=== PATIENT | female | born 1995 | race Two or more races ===

== ENCOUNTER → 2019-05-21 | Outpatient (CLI) | payer OTHER ==
[2019-05-21 20:14] LABS: BASO # 0.1 10^3/uL (0.0-0.2); BASO % 0.4 % (0.0-1.0); EOS # 0.1 10^3/uL (0.0-0.5); EOS % 1.1 % (0.0-3.0); HEMOGLOBIN 12.7 g/dl (12.0-15.5); LYMPH # 2.4 10^3/uL (1.5-5.0); MEAN CORPUSCULAR HEMOGLOBIN 31.3 pg (27.0-33.0); MEAN CORPUSCULAR HGB CONC 34.3 g/dl (32.0-36.5); MEAN CORPUSCULAR VOLUME 91.1 fl (80.0-96.0); MONO # 0.7 10^3/uL (0.0-0.8); MONO % 5.7 % (0.0-5.0); NEUTROPHILS # 8.2 10^3/uL (1.5-8.5); NEUTROPHILS % 71.5 % (36.0-66.0); PLATELET COUNT, AUTOMATED 291 10^3/uL (150-450); RED BLOOD COUNT 4.06 10^6/uL (4.00-5.40); WHITE BLOOD COUNT 11.4 10^3/uL (4.0-10.0)
[2019-05-21 20:27] LABS: CHLAMYDIA DNA AMPLIFICATION NEGATIVE (NEGATIVE); GC DNA AMPLIFICATION NEGATIVE (NEGATIVE)
[2019-05-23 10:08] LABS: HEPATITIS C VIRUS ABY INDEX 0.1 INDEX (<0.8); HIV 1&2 SCREEN CENTAUR NEGATIVE (NEGATIVE); RUBELLA IgG QUALITATIVE IMMUNE (IMMUNE)
== END ==
LOC: M SMT 14:37
PROVIDERS: ATTEND Advanced Practice Midwife
DX: Z36.89 Encounter for other specified antenatal screening (principal)

== ENCOUNTER → 2019-07-16 | Outpatient (CLI) | payer OTHER | LOC: M LAB 15:13 | PROVIDERS: ATTEND Advanced Practice Midwife | DX: Z34.82 Encounter for supervision of other normal pregnancy, second trimester (principal) ==

== ENCOUNTER → 2019-08-08 | Outpatient (CLI) | payer OTHER ==
--- NOTE | 2019-08-08 16:06 | REP ---
Clinical: Anatomical evaluation. Comparison: None . Findings: Examination demonstrates a single live intrauterine in transverse (head to maternal right) presentation. motion is identified by technologist. Placenta is noted posterior and grade zero without evidence for placenta previa or abruption. Amniotic fluid volume is normal. Cervix measures 5.6 cm in length and appears closed. No evidence for nuchal cord. Gestational age by LMP 19 weeks 4 days with GOPI 12/29/2019 . Gestational age by current measurements 21 weeks 2 days with GOPI 12/17/2019 . FHR equals 147 beats per minute. BPD 4.9 cm 20 weeks 6 days HC 18.7 cm 21 weeks 0 days AC 16.7 cm 21 weeks 5 days FL 3.6 cm 21 weeks 3 days HL 3.3 cm 21 weeks 0 days HC/AC ratio 1.12 Estimated weight 429 grams ( 56 percentile based on age by current measurements ). Anatomical assessment demonstrates normal structures including cranium, choroid plexus, cerebellum/posterior fossa, facial features, lungs, four-chamber heart/ventricular outflow tracts, diaphragm, stomach, cord insertion/three-vessel cord, kidneys/bladder, spine, and extremities. Limited evaluation of the cavum due to positioning. Echogenic focus within the left cardiac ventricle consistent with prominent chordae tendineae. Impression: 1. Single live intrauterine in transverse lie demonstrating appropriate estimated weight to current age by measurements. 2. Anatomical limitations as noted above. Electronically Signed by Devon Esteban MD 08/08/2019 03:58 P
== END ==
LOC: M RAD 14:45
PROVIDERS: ATTEND Advanced Practice Midwife
DX: Z34.82 Encounter for supervision of other normal pregnancy, second trimester (principal); Z3A.19 19 weeks gestation of pregnancy

== ENCOUNTER → 2019-08-25 | Outpatient (CLI) | payer OTHER ==
--- NOTE | 2019-08-25 14:17 | REP ---
Clinical: Anatomical evaluation. Comparison: 08/08/2019 . Findings: Examination demonstrates a single live intrauterine in cephalic presentation. motion is identified by technologist. Placenta is noted posterior and grade zero without evidence for placenta previa or abruption. Amniotic fluid volume is normal. Cervix measures 5.7 cm in length and appears closed. No evidence for nuchal cord. Gestational age by LMP 22 weeks 0 days with GOPI 12/29/2019 . Gestational age by current measurements 23 weeks 4 days with GOPI 12/18/2019 . FHR equals 160 beats per minute. Estimated weight 582 grams ( 34th percentile based on age by first ultrasound and current measurements ). Anatomical assessment demonstrates normal structures including cranium, choroid plexus, cavum, cerebellum/posterior fossa, lungs, four-chamber heart/ventricular outflow tracts, diaphragm, stomach, kidneys/bladder, spine, and extremities. Impression: 1. Single live intrauterine demonstrating appropriate interval growth. 2. In conjunction with prior examination anatomical assessment is complete and normal. Electronically Signed by Devon Esteban MD 08/25/2019 02:08 P
== END ==
LOC: M RAD 13:04
PROVIDERS: ATTEND Advanced Practice Midwife
DX: Z36.2 Encounter for other antenatal screening follow-up (principal); Z3A.23 23 weeks gestation of pregnancy

== ENCOUNTER → 2019-09-26 | Outpatient (CLI) | payer OTHER ==
[2019-09-26 13:46] LABS: HEMOGLOBIN 11.9 g/dl (12.0-15.5); MEAN CORPUSCULAR HEMOGLOBIN 31.6 pg (27.0-33.0); MEAN CORPUSCULAR VOLUME 93.1 fl (80.0-96.0); PLATELET COUNT, AUTOMATED 338 10^3/uL (150-450); RED BLOOD COUNT 3.76 10^6/uL (4.00-5.40); WHITE BLOOD COUNT 12.8 10^3/uL (4.0-10.0)
== END ==
LOC: M PLALAB 08:25
PROVIDERS: ATTEND Advanced Practice Midwife
DX: Z34.93 Encounter for supervision of normal pregnancy, unspecified, third trimester (principal)

== ENCOUNTER 2019-11-07 17:38 | Outpatient (CLI) | payer OTHER ==
[~2019-11-07] VITALS: Ht 167.6 cm; Wt 93.9 kg
[2019-11-07 17:56] VITALS: BP 126/78
[2019-11-07] MEDS ORDERED: PEPC1TAB5 PO (17:59)
--- NOTE | 2019-11-07 18:38 | IPNPDOC ---
Text Note Date of Service The patient was seen on 11/07/19. NOTE Triage Subjective: Patient is a 24-year-old at 32.4 wk gestation. Patient arrives to L&D complaining of right lower quadrant/pelvic pain that is constant for a couple of days. Denies pain with urination. Denies fevers/chills. Reports recent sexual activity and pushing heavy object a couple of days ago. Reports positive movement, denies vaginal bleeding or leakage of fluid. Denies regular or painful uterine contractions. She reports she has not had much water to drink today. Reports pain is minimally improved after rest and fluids. Objective: Alert and oriented x3. Abdomen soft, non-tender. FHR 140, moderate variability. Accelerations present, decelerations absent. Mild uterine contractions every 2-7 minutes, patient unaware. Sterile speculum exam showed cervix thick/long/closed, FFN collected. Assessment: SIUP @ 32.4 wk, right lower constant pelvic pain. FHR category 1. Plan: Oral fluids given and encouraged. FFN negative. Urinalysis results attached. Urine culture pending. Reviewed results with patient and spouse, encouraged increased oral fluids and food intake. Reviewed access to care, [facility], signs of labor and abruption. Keep appointment on 11/21/2019. VS,Fishbone, I+O VS, Fishbone, I+O Vital Signs Date Time Temp Pulse Resp B/P (MAP) Pulse Ox O2 Delivery O2 Flow Rate FiO2 11/07/19 17:56 98.4 96 16 126/78 (94) Item Value Date Time Urine Color YELLOW 11/07/191830 Urine Appearance HAZY 11/07/191830 Urine pH 6.0 UNITS 11/07/191830 Urine Specific Bock 1.015 11/07/191830 Urine Protein NEGATIVE mg/dL 11/07/191830 Urine Glucose (Auto)(UA) NEGATIVE mg/dL 11/07/191830 Urine Ketones (Auto) TRACE mg/dL H 11/07/191830 Urine Blood 2+ H 11/07/191830 Urine Nitrite NEGATIVE 11/07/191830 Urine Bilirubin NEGATIVE 11/07/191830 Urine Urobilinogen 0.2 mg/dL 11/07/191830 Urine Leukocyte Esterase (Auto) NEGATIVE 11/07/191830 Urine WBC (Auto) 2 /HPF 11/07/191830 Urine RBC (Auto) 5 /HPF H 11/07/191830 Urine Hyaline Casts (Auto) 0 /LPF 11/07/191830 Urine Bacteria (Auto) 1+ H 11/07/191830 Urine Squamous Epithelial Cells 2 /HPF 11/07/191830 Urine Mucus (Auto) SMALL 11/07/191830 Item Value Date Time Fibronectin NEGATIVE 11/07/191830 Susan Feliz CNM Nov 07, 2019 18:38
[2019-11-07 18:52] LABS: APPEARANCE, URINE HAZY (CLEAR); BACTERIA, URINE AUTO 1+ (NEGATIVE); BILIRUBIN, URINE AUTO NEGATIVE (NEGATIVE); BLOOD, URINE BLOOD 2+ (NEGATIVE); COLOR, URINE YELLOW (YELLOW); GLUCOSE, URINE (UA) AUTO NEGATIVE (NEGATIVE); KETONE, URINE AUTO TRACE mg/dL (NEGATIVE); LEUKOCYTE ESTERASE, URINE AUTO NEGATIVE (NEGATIVE); MUCUS, URINE SMALL (NEGATIVE); NITRITE, URINE AUTO NEGATIVE (NEGATIVE); PROTEIN, URINE AUTO NEGATIVE (NEGATIVE); RBC, URINE AUTO 5 /HPF (0-3); SPECIFIC GRAVITY URINE AUTO 1.015 (1.002-1.035); SQUAMOUS EPITHELIAL CELL UR AU 2 /HPF (0-6); UROBILINOGEN, URINE AUTO 0.2 mg/dL (0.0-2.0); WBC, URINE AUTO 2 /HPF (0-3)
== END 2019-11-07 19:40 | disposition home or self-care (01) ==
LOC: M LDO 17:38
PROVIDERS: ATTEND Advanced Practice Midwife
DX: O26.93 Pregnancy related conditions, unspecified, third trimester (principal); R10.2 Pelvic and perineal pain; Z3A.32 32 weeks gestation of pregnancy
CPT/HCPCS: 59025; 81001; 82731; 87086; G0378; G0463

== ENCOUNTER → 2019-12-05 | Outpatient (REF) | payer OTHER ==
[~2019-12-05] MED LIST: PEPC1TAB5 PO
== END ==
LOC: M SFHCWAGY 16:42
PROVIDERS: ATTEND Advanced Practice Midwife
DX: Z36.85 Encounter for antenatal screening for Streptococcus B (principal)

== ENCOUNTER 2019-12-17 14:45 | Inpatient (IN) | payer OTHER ==
[~2019-12-17] VITALS: Ht 167.6 cm; Wt 96.3 kg
[2019-12-17] VITALS (18 sets, daily range): BP systolic 106–158; BP diastolic 65–97
[2019-12-17] MEDS ORDERED: LR 1,000 ML IV SCH ×2 (15:22→18:06)
[2019-12-17] MEDS ORDERED: LACTATED RINGER'S 1000 ML IV STA (15:22)
[2019-12-17] MEDS ORDERED: FENTANYL 2MCG/ML ROPIVACAINE 0.2% IN 0.9% NACL 100ML IVBAG As Ordered ONE (15:41)
[2019-12-17 15:47] LABS: HEMATOCRIT 36.1 % (36.0-47.0); HEMOGLOBIN 12.2 g/dl (12.0-15.5); MEAN CORPUSCULAR HEMOGLOBIN 29.8 pg (27.0-33.0); MEAN CORPUSCULAR HGB CONC 33.8 g/dl (32.0-36.5); MEAN CORPUSCULAR VOLUME 88.3 fl (80.0-96.0); PLATELET COUNT, AUTOMATED 320 10^3/uL (150-450); RED BLOOD COUNT 4.09 10^6/uL (4.00-5.40); WHITE BLOOD COUNT 13.7 10^3/uL (4.0-10.0)
--- NOTE | 2019-12-17 15:49 | HPE ---
DATE: 12/17/2019 Cora is a 24-year-old 1, para 0, 38-2/7 weeks gestation with an EDC of 12/29/2019 based on first trimester ultrasound. She presents to labor and delivery today with a report of contractions that started yesterday afternoon and have progressively become closer together and more painful. She does report some scant bloody show, denies leakage of fluid, and the fetus has been active. [facility] in the first trimester. Her course has been uncomplicated. OBSTETRIC HISTORY: Primigravida. OBSTETRIC LABS: O+, antibody screen negative, RPR negative. Hep B surface antigen negative. Hep C antibody nonreactive. HIV negative, rubella immune. Gonorrhea and chlamydia negative. Gestational diabetic screening normal at 118 and her GBS is negative. PAST MEDICAL HISTORY: Childhood varicella. SURGERIES: None. FAMILY HISTORY: Heart disease, hypertension. SOCIAL HISTORY: The patient is . Her is present and supportive. She is Occitan-speaking. She denies smoking, alcohol and drug use. There is no history of sexually transmitted infections and she does deny history of abuse physical, sexual and emotional. ALLERGIES: No known drug allergies. CURRENT MEDICATIONS: vitamin. OBJECTIVE: Temperature 99.2, pulse 88, respirations 18, BP is 130/82. She does appear uncomfortable deep breathing constraining with her contractions. heart rate is 130 with moderate variability, positive accelerations, negative decelerations. Contractions are every 2-4 minutes, they do palpate strong. Her abdomen is gravid, cephalic presentation by Hakeem's maneuver. Estimated weight 7-1/2 pounds. Sterile vaginal exam 4-5 cm dilated, 90% effaced, -2 station, mid position, positive show with the exam. ASSESSMENT: Intrauterine at 38-2/7 weeks. heart rate category 1 active labor at term. PLAN: Admit the patient to labor and delivery. Routine labs. Out of bed ad shaheed. Clear liquid diet. The patient is requesting an epidural to cope with her labor. IV fluid bolus has been ordered. She has been verbally consented for emergency surgery and blood products if they are necessary. I do anticipate continued cervical change and a spontaneous vaginal delivery. May consider IV Pitocin to augment her labor or assisted rupture of membranes if necessary once epidural has been placed.
[2019-12-17] MEDS ORDERED: ONDANSETRON 4MG/2ML VIAL (J2405 PER 1MG) IV PRN (17:45)
[2019-12-17] MEDS ORDERED: EPIDURAL/PCA KEYS XX PRN (17:45)
[2019-12-17] MEDS ORDERED: diphenhydrAMINE 50MG/ML VIAL (J1200) IV PRN (17:45)
[2019-12-17] MEDS ORDERED: EPIDURAL COMMENT XX SCH (17:45)
[2019-12-17] MEDS ORDERED: ePHEDrine SULFATE 25 MG/5 ML(5MG/ML) SYRINGE IV PRN (17:45)
[2019-12-17] MEDS ORDERED: REFRIGERATOR IV KEYS XX PRN (17:45)
[2019-12-17] MEDS ORDERED: FENTANYL/ROPIVACAINE/NACL BAG 100 ML EPIDURAL SCH (17:45)
[2019-12-17] MEDS ORDERED: NALOXONE INJ 0.4MG/1ML VIAL (J2310 PER 1MG) IV PRN (17:45)
[2019-12-17] MEDS ORDERED: OXYTOCIN DRIP 30 UNITS in IV 1 EA IV SCH ×2 (18:15→23:30)
[2019-12-17] MEDS: FAMOTIDINE 20 MG TAB PO SCH (18:40)
[2019-12-17] MEDS ORDERED: MEASLES,MUMPS,RUBELLA VACCINE INJ (MMR-II) (90707) SC SCH (23:30)
[2019-12-17] MEDS ORDERED: DOCUSATE SODIUM 100 MG CAP PO PRN (23:30)
[2019-12-17] MEDS ORDERED: ACETAMINOPHEN TAB 650MG DOSE (2X325MG) PO PRN (23:30)
[2019-12-17] MEDS ORDERED: ACETAMINOPHEN 500 MG TAB PO PRN (23:30)
[2019-12-17] MEDS ORDERED: IBUPROFEN 600 MG TAB PO PRN (23:30)
[2019-12-17] MEDS ORDERED: RHOGAM 300 MCG (1500 IU) INJ (J2790) IM SCH (23:30)
[2019-12-17] MEDS ORDERED: DIBUCAINE 1% OINTMENT 30GM TOP PRN (23:30)
[2019-12-17] MEDS ORDERED: METHYLERGONOVINE MALEATE 0.2 MG TAB PO PRN (23:30)
[2019-12-18] MEDS: IBUPROFEN 800 MG TAB PO PRN (02:14)
[2019-12-18 02:20] VITALS: BP 111/70
[2019-12-18 06:00] VITALS: BP 116/77
--- NOTE | 2019-12-18 07:14 | DN ---
DATE OF DELIVERY: 12/16/2009 Cora is a 24-year-old. 1, para 1-0-0-1 now, who was admitted to labor and delivery in active labor. She utilized an epidural for her labor coping. She had assisted rupture of membranes for clear fluid at 2236. She also reached complete dilation at 2236. She pushed to a normal spontaneous vaginal delivery of a live female infant in right occiput anterior (HANNAH) position with restitution to right occiput transverse (ROT) position at 2256. There was no nuchal cord. The shoulders delivered spontaneously and the corpus immediately followed. The was placed on the maternal abdomen crying and active. The cord was clamped x2 and cut by the father of the baby under my direction once pulsations ceased. Cord blood was obtained. A spontaneous expulsion of an intact placenta with three-vessel cord by Bartlett mechanism was at 2301. Uterine hemostasis was achieved with IV Pitocin rapid infusion and uterine fundal massage. Estimated blood loss 250 mL. Perineum and vagina inspected and noted to have a first-degree midline laceration and bilateral labial lacerations. The lacerations were repaired with #3-0 Rapide in the usual fashion. The female weighed 3610 grams, 7 pounds 15 ounces, Apgars 9 and 9. Mom is going to breastfeed her daughter and the family have named her Gloria Zepeda. At the close of delivery, lap counts, needle counts and instrument counts were correct and verified.
[2019-12-18] MEDS: PRENATAL VITAMINS CHEWABLE TABLET PO SCH (08:58)
[2019-12-18] MEDS: FAMOTIDINE 20 MG TAB PO SCH ×2 (08:59→20:05)
[2019-12-18 18:00] VITALS: BP 131/75
[2019-12-19 06:26] VITALS: BP 124/74
[2019-12-19] MEDS ORDERED: IBUP-1022 PO (07:53)
[2019-12-19] MEDS ORDERED: ACET-683 PO (07:53)
[2019-12-19] MEDS: FAMOTIDINE 20 MG TAB PO SCH (08:21)
[2019-12-19] MEDS: PRENATAL VITAMINS CHEWABLE TABLET PO SCH (08:21)
[2019-12-19] MEDS ORDERED: INFLUENZA QUADRIVALENT PF VACCINE 0.5ML SYRINGE (90686) IM ONE (09:00)
[2019-12-19] MEDS: IBUPROFEN 800 MG TAB PO PRN (11:08)
== END 2019-12-19 13:45 | disposition home or self-care (01) | DRG 807 ==
LOC: M LDO 14:45 → M LDI 15:21 → M OBS 12-18 01:06
PROVIDERS: ADMIT Advanced Practice Midwife; ATTEND Advanced Practice Midwife
PROC: 10E0XZZ Delivery of Products of Conception, External Approach (ICD-10-PCS; principal; 2019-12-17)
PROC: 0HQ9XZZ Repair Perineum Skin, External Approach (ICD-10-PCS; 2019-12-17)
DX: O70.0 First degree perineal laceration during delivery (principal); Z37.0 Single live birth; Z3A.38 38 weeks gestation of pregnancy